=== PATIENT | male | born 1965 | race Caucasian/White ===

== ENCOUNTER 2025-03-15 08:12 | Outpatient (CLI) | payer OTHER, SELFPAY ==
[2025-03-15 09:33] LABS: Hematocrit 43.5 % (37-53); Hemoglobin 14.30 g/dL (11.27-16.99); Mean Corpuscular HGB Conc 32.9 g/dL (30-55); Mean Corpuscular Hemoglobin 29.3 pg (27-33); Mean Corpuscular Volume 89.1 fl (82-101); Nucleated Red Blood Cells % 0 %; Platelet Count 158 10^3/cmm (157-399); Red Blood Count 4.88 10^6/uL (3.85-5.65); White Blood Count 5.53 10^3/uL (3.29-11.43)
[2025-03-15 10:06] LABS: Slide Review Slide Review Perform
[2025-03-15 10:08] LABS: Alanine Aminotransferase 14 U/L (0-41); Albumin Level 4.4 g/dL (3.5-5.2); Alkaline Phosphatase 65 U/L (40-130); Anion Gap 14.1 (5-19); Aspartate Amino Transferase 16 U/L (0-40); Blood Urea Nitrogen 11 mg/dL (6-20); Calcium 9.0 mg/dL (8.5-10.5); Carbon Dioxide 26 mmol/L (22-29); Chloride 105 mmol/L (98-107); Globulin 2.5 g/dL (1.3-4.6); Glucose 111 mg/dL (65-115); Osmolality Calculated 292 mOsm/kg (285-295); Potassium 4.1 mmol/L (3.5-5.1); Prostate Specific Antigen 1.940 ng/mL (0-4); Sodium 141 mmol/L (136-145); Total Protein 6.9 g/dL (6.6-8.7)
== END 2025-03-15 08:13 | disposition home or self-care (01) ==
PROVIDERS: PCP General Practice; Visit Provider Urology
DX: N40.1 Benign prostatic hyperplasia with lower urinary tract symptoms (principal); Z12.5 Encounter for screening for malignant neoplasm of prostate; E29.1 Testicular hypofunction
CPT/HCPCS: 36415; 80053; 84153; 84403; 85025